=== PATIENT | female | born 1950 | race Caucasian/White ===

== ENCOUNTER 2022-12-13 11:27 | Inpatient (IN) | payer OTHER ==
[~2022-12-13] VITALS: Ht 157.5 cm; Wt 54.4 kg
[2022-12-13 12:42] LABS: CARBON DIOXIDE 23 mmol/L (21-32); CHLORIDE 96 mmol/L (98-107); GLUCOSE 228 mg/dL (74-106); POTASSIUM 4.9 mmol/L (3.5-5.1); SODIUM SERUM 126 mmol/L (136-145); UREA NITROGEN, BLOOD 26 mg/dL (7-18)
[2022-12-13 12:48] LABS: ALANINE AMINOTRANSFERASE < 6 U/L (12-78); ALKALINE PHOSPHATASE 84 U/L (46-116); ASPARTATE AMINOTRANSFERASE 34 U/L (15-37); BILIRUBIN,TOTAL 0.4 mg/dL (0.2-1.0); LIPASE < 10 U/L (73-393); TOTAL PROTEIN, SERUM 7.3 g/dL (6.4-8.2)
[2022-12-13 12:49] LABS: ALBUMIN < 3.0 g/dL (3.4-5.0)
--- NOTE | 2022-12-13 12:55 | NUR ---
ACCESSED RIGHT PORTACATH ASSEPTICALLY. DRESSING APPLIED AND LABELED
--- NOTE | 2022-12-13 12:56 | NUR ---
blood sample obtained sent to lab
[2022-12-13 13:00] LABS: BASOPHILS % (AUTO) 0.7 % (0.0-2.0); EOSINOPHILS % (AUTO) 1.3 % (0.0-6.0); HEMATOCRIT 33 % (33-45); HEMOGLOBIN 11.1 g/dL (11.5-14.8); LYMPHOCYTES # (AUTO) 0.5 K/uL (0.8-4.8); LYMPHOCYTES % (AUTO) 43.1 % (20.0-44.0); MEAN CORPUSCULAR HGB CONC 34 g/dl (31.0-36.0); MEAN CORPUSCULAR VOLUME 94 fL (82-100); MONOCYTES % (AUTO) 3.9 % (2.0-12.0); NEUTROPHILS # (AUTO) 0.6 K/uL (1.8-8.9)
[2022-12-13 13:03] LABS: WHITE BLOOD COUNT (AUTO) 1.1 K/uL (4.3-11.0)
[2022-12-13 13:04] LABS: PLATELET COUNT (AUTO) 16 K/uL (150-450)
--- NOTE | 2022-12-13 13:07 | NUR ---
[facility] . WBC - 1.1 , PLATELET 16 . MD MADE AWARE
--- NOTE | 2022-12-13 13:10 | NUR ---
MOVE SHEET SUBMITTED.
--- NOTE | 2022-12-13 13:28 | NUR ---
COVID SWAB TAKEN SENT TO LAB
--- NOTE | 2022-12-13 14:43 | NUR ---
URINE SAMPLE OBTAINED SENT TO LAB
[2022-12-13 15:09] LABS: BILIRUBIN,URINE NEGATIVE (NEGATIVE); COLOR,URINE YELLOW (YELLOW); LEUKOCYTE ESTERASE ,URINE NEGATIVE (NEGATIVE); NITRITE, URINE NEGATIVE (NEGATIVE); PH,URINE 7.5 (5.0-8.0); PROTEIN,URINE TRACE mg/dl (NEGATIVE); UGLUCOSE 2+ mg/dL (NEGATIVE); UROBILINOGEN,URINE 0.2 EU/dL (0.2)
[2022-12-13] MEDS ORDERED: MORPHINE SULFATE INJ 4 MG/ML DISP.SYRIN ONE ×2 (15:20→18:03)
[2022-12-13] MEDS ORDERED: ONDANSETRON HCL/PF 4 MG/2 ML VIAL ONE ×2 (15:20→18:03)
[2022-12-13] MEDS ORDERED: ONDANSETRON HCL/PF 4 MG/2 ML VIAL IV ONE ×2 (15:30→18:00)
[2022-12-13] MEDS ORDERED: PIPERACILLIN /TAZOBACTAM 3.375 G in IV D5W 50 ML IV ONE (15:30)
[2022-12-13] MEDS ORDERED: MORPHINE SULFATE INJ 2 MG/ML DISP.SYRIN IV ONE ×2 (15:30→18:00)
[2022-12-13] MEDS ORDERED: VANCOMYCIN 1 GM in IV D5W 250 ML IV ONE (15:30)
[2022-12-13] MEDS ORDERED: IV NS 0.9% 1,000 ML IV ONE ×2 (15:30→18:00)
[2022-12-13 17:18] LABS: BACTERIA,URINE None seen /HPF (None Seen); SQUAMOUS EPITHELIAL CELL,UR 0-2 /HPF (None Seen); WBC,URINE 0-2 /HPF (0-3)
[2022-12-13 17:29] LABS: BAND % (MANUAL) 2 % (0.0-5.0); BASOPHILS % (MANUAL) 2 % (0.0-2.0); LYMPHOCYTES % (MANUAL) 42 % (16-48); MONOCYTES % (MANUAL) 6 % (0-11.0); NEUTROPHILS % (MANUAL) 48 (42-76)
[2022-12-13] MEDS ORDERED: ACETAMINOPHEN 325 MG TABLET PO ONE (18:00)
[2022-12-13] MEDS ORDERED: ACETAMINOPHEN 325 MG TABLET ONE (18:04)
--- NOTE | 2022-12-13 21:17 | NUR ---
AUTH #[id number] MIRLANDE POOLE
--- NOTE | 2022-12-13 21:21 | NUR ---
DR VIRGILIO ARAIZA PER DR ETIENNE.
--- NOTE | 2022-12-13 21:39 | NUR ---
DR ETIENNE ON PHONE CALL WITH DR POOLE
--- NOTE | 2022-12-13 21:51 | NUR ---
CONSENT FOR BLOOD TRANSFUSION SIGNED BY PATIENT. SON AT BEDSIDE
--- NOTE | 2022-12-13 23:25 | NUR ---
REPORT GIVEN TO RN RAMA
--- NOTE | 2022-12-13 23:38 | NUR ---
TRANSFERRED TO ROOM
[2022-12-13 23:45] VITALS: BP 145/55
--- NOTE | 2022-12-13 23:55 | NUR ---
MS ERGONOMIC SPECIALIST NOTES - RECEIVED PATIENT FROM ED AT 2337 VIA GURNEY UNDER THE CARE OF DR. POOLE WITH DX OF PANCYTOPENIA. PATIENT IS A/O X4, FRENCH SPEAKING. SHE IS ACCOMPANIED BY HER SON WHO TRANSLATES AND PROVIDES ADDITIONAL PMI. PATIENT IS BREATHING EVEN AND NON-LABORED, ON O2 AT 2LPM VIA NASAL CANULA SATURATING AT 100%. PLACED ON ROOM AIR AND STILL SATURATING AT 97%. DENIES PAIN AT THIS TIME. HAS RIGHT UPPER CHEST PORT-A-CATH AND SALINE LOCKED. NO S/S OF INFILTRATION NOTED. VITAL SIGNS TAKEN AND PHYSICAL ASSESSMENT DONE. MINOR BRUISING NOTED ON BOTH ARMS BUT NO OPEN WOUND. PATIENT IS AMBULATORY WITH ASSIST GOING TO BATHROOM. MINIMAL ASSISTANCE WITH ADLS. ALL BELONGINGS ACCOUNTED FOR. ORIENTED PATIENT AND SON TO UNIT AND STAFF. SAFETY PRECAUTIONS IN PLACE: BED LOCKED AND IN LOW POSITION, SIDE RAILS UP X2, CALL LIGHT WITHIN REACH, ON NEUTROPENIC ISOLATION. WILL CONTINUE PLAN OF CARE.
[2022-12-14] VITALS (7 sets, daily range): BP systolic 102–140; BP diastolic 56–83
[2022-12-14] MEDS ORDERED: IV NS 0.9% 1,000 ML IV ONE
[2022-12-14] MEDS ORDERED: INSULIN REGULAR, HUMAN 100 UNIT/ML 3 ML VIAL SQ PRN
[2022-12-14] MEDS ORDERED: ZOLPIDEM TARTRATE 5 MG TABLET PO PRN
[2022-12-14] MEDS ORDERED: *INSULIN REGULAR(HUMULIN R)HUM 100 UNIT/ML VIAL SQ PRN
[2022-12-14] MEDS ORDERED: FILGRASTIM (300 MCG) 300 MCG/ML VIAL SQ SCH
[2022-12-14] MEDS ORDERED: DEXTROSE 50%-WATER 50 ML DISP.SYRIN IV PRN
[2022-12-14] MEDS ORDERED: HYDROCODONE/APAP 5/325MG TABLET PO PRN
[2022-12-14] MEDS ORDERED: TBO-FILGRASTIM 300 MCG/0.5 ML SYRINGE SQ SCH ×2 (00:30→15:00)
--- NOTE | 2022-12-14 01:27 | NUR ---
PER CN LOLA, MEDICATION IS NOT AVAILABLE IN THE NIGHT LOCKER.
[2022-12-14] MEDS: ACETAMINOPHEN 325 MG TABLET PO PRN ×2 (02:19→09:31)
--- NOTE | 2022-12-14 02:19 | NUR ---
PATIENT C/O MILD ABDOMINAL PAIN. GAVE PRN TYLENOL 650MG, TOLERATED WELL. WILL CONTINUE TO MONITOR.
--- NOTE | 2022-12-14 06:54 | NUR ---
MS RN CLOSING NOTES - PATIENT SITTING ON BEDSIDE, DAUGHTER PRESENT IN ROOM. ABLE TO VERBALIZE NEEDS. NO ACUTE DISTRESS THROUGHOUT THE NIGHT. NO SOB OR , TOLERATING ROOM AIR WELL. NO C/O PAIN AT THIS TIME. AFEBRILE. RIGHT UPPER CHEST PORT-A-CATH INTACT, PATENT AND FLUSHING. DRESSING C/D/I. ALL DUE MEDS GIVEN AND NEEDS ATTENDED. NO ADVERSE REACTION FROM PLATELET TRANSFUSION. SAFETY PRECAUTIONS MAINTAINED. WILL ENDORSE TO NEXT SHIFT FOR MAURI.
[2022-12-14 07:18] LABS: BASOPHILS % (AUTO) 0.5 % (0.0-2.0); EOSINOPHILS % (AUTO) 1.8 % (0.0-6.0); HEMATOCRIT 23 % (33-45); HEMOGLOBIN 7.9 g/dL (11.5-14.8); LYMPHOCYTES # (AUTO) 0.7 K/uL (0.8-4.8); LYMPHOCYTES % (AUTO) 56.2 % (20.0-44.0); MEAN CORPUSCULAR HGB CONC 34 g/dl (31.0-36.0); MEAN CORPUSCULAR VOLUME 94 fL (82-100); MONOCYTES # (AUTO) 0.1 K/uL (0.1-1.30); MONOCYTES % (AUTO) 8.6 % (2.0-12.0); NEUTROPHILS # (AUTO) 0.4 K/uL (1.8-8.9); NEUTROPHILS % (AUTO) 32.9 % (43.0-81.0); PLATELET COUNT (AUTO) 67 K/uL (150-450); RED BLOOD CELL COUNT(AUTO) 2.47 MIL/uL (4.0-5.2)
[2022-12-14 07:23] LABS: WHITE BLOOD COUNT (AUTO) 1.2 K/uL (4.3-11.0)
[2022-12-14 07:27] LABS: ALANINE AMINOTRANSFERASE 18 U/L (12-78); ALBUMIN 2.9 g/dL (3.4-5.0); ALKALINE PHOSPHATASE 74 U/L (46-116); ASPARTATE AMINOTRANSFERASE 29 U/L (15-37); BILIRUBIN,TOTAL 0.2 mg/dL (0.2-1.0); CALCIUM, SERUM 9.6 mg/dL (8.5-10.1); CARBON DIOXIDE 25 mmol/L (21-32); CHLORIDE 102 mmol/L (98-107); CREATININE 1.7 mg/dL (0.6-1.3); GLUCOSE 168 mg/dL (74-106); POTASSIUM 4.1 mmol/L (3.5-5.1); SODIUM SERUM 135 mmol/L (136-145); TOTAL PROTEIN, SERUM 6.2 g/dL (6.4-8.2); UREA NITROGEN, BLOOD 18 mg/dL (7-18)
[2022-12-14] MEDS ORDERED: BLOOD SUGAR DIAGNOSTIC 1 EACH STRIP VI SCH (07:30)
--- NOTE | 2022-12-14 08:06 | NUR ---
RN OPENING NOTE PT ALERT AND ORIENTED X4. PT IS MACAN[place] SPEAKING UNDERSTANDS A LITTLE BIT OF SYRI[place]. PT HAS R IGHT UPPER CHEST PORT A CATH. CLEAN, DRY, INTACT. ALL SAFETY MEASURES IN PLACE. CALL LIGHT WITHIN REACH. BED LOCKED AT LOWEST POSITION. SIDE RAILS UP X2. BED ALARM ON. FAMILY AT BEDSIDE
[2022-12-14] MEDS ORDERED: PANTOPRAZOLE 40 MG VIAL IV SCH (09:00)
[2022-12-14] MEDS ORDERED: HYDR-3972 PO (11:12)
[2022-12-14] MEDS ORDERED: IV CHEMO IV (11:12)
[2022-12-14] MEDS ORDERED: ONDA-97 PO (11:12)
[2022-12-14] MEDS ORDERED: ATOR10TA PO (11:12)
[2022-12-14] MEDS ORDERED: FERR325T23 PO (11:12)
[2022-12-14] MEDS ORDERED: FOLI0.4T6 PO (11:12)
[2022-12-14] MEDS ORDERED: GLIP5TAB13 PO (11:12)
[2022-12-14] MEDS ORDERED: FAMO20TA8 PO (11:12)
[2022-12-14 11:35] LABS: BASOPHILS % (MANUAL) 0 % (0.0-2.0); EOSINOPHILS % (MANUAL) 2 % (0-4); LYMPHOCYTES % (MANUAL) 52 % (16-48); MONOCYTES % (MANUAL) 8 % (0-11.0); NEUTROPHILS % (MANUAL) 38 (42-76)
--- NOTE | 2022-12-14 11:47 | NUR ---
son at bedside wants to take payient home,notified dr. younger ordered discharge pt and continue home meds ,no new prescription.
--- NOTE | 2022-12-14 12:20 | NUR ---
rn first assistant note pt left in stable condition. pt a/o x4. removed tele monitor box and prt a cath. went over discharge instructions with patient and son at bedside. escorted out by wheelchair with molly CARDBOARD CUTTER.picked up by pt son and daughter at bedside. pt and pt family verbalized understanding of discharge instructions and to follow up outpatient.
--- NOTE | 2022-12-16 15:32 | NUR ---
SS consult requested over the weekend, however, pt. has departed.
== END 2022-12-14 13:55 | disposition home or self-care (01) | DRG 660 ==
LOC: ER 11:29 → MEDSG1 23:19
PROVIDERS: ADMIT Internal Medicine; ATTEND Internal Medicine
PROC: 30243R1 Transfusion of Nonautologous Platelets into Central Vein, Percutaneous Approach (ICD-10-PCS; principal; 2022-12-14)
DX: D61.810 Antineoplastic chemotherapy induced pancytopenia (principal); N17.0 Acute kidney failure with tubular necrosis; C85.90 Non-Hodgkin lymphoma, unspecified, unspecified site; E11.22 Type 2 diabetes mellitus with diabetic chronic kidney disease; E86.0 Dehydration; E11.65 Type 2 diabetes mellitus with hyperglycemia; N18.9 Chronic kidney disease, unspecified; R11.2 Nausea with vomiting, unspecified; T45.1X5A Adverse effect of antineoplastic and immunosuppressive drugs, initial encounter; Y92.89 Other specified places as the place of occurrence of the external cause
CPT/HCPCS: 36415; 80048-TC; 80053-TC; 80076-TC; 81001; 82962-TC; 83690-TC; 85025-TC; 85730-TC; 86850-TC; 87040-TC; 87081-TC; A4223; C9113; C9803; G0378; J1442; J1815; J2270; J2405; J2543; J3370; J7030; J7050; J7060; P9034